=== PATIENT | female | born 1955 | race Caucasian/White ===

== ENCOUNTER 2024-04-17 01:26 | Emergency (ER) | payer OTHER ==
[2024-04-17] MEDS ORDERED: Morphine 4 MG/ML VIAL ONE (02:05)
[2024-04-17] MEDS ORDERED: Dicyclomine 20 MG/2 ML VIAL ONE (02:05)
[2024-04-17] MEDS ORDERED: Ondansetron PF 4 MG/2 ML Vial ONE (02:05)
[2024-04-17] MEDS ORDERED: Lidocaine Viscous Sol 2% 15 ml UD Cup ONE (02:06)
[2024-04-17] MEDS ORDERED: Mag-Al Plus 1200/1200/120 MG (30 mL) UDCUP ONE (02:06)
[2024-04-17] MEDS ORDERED: Sodium Chloride 0.9% 1,000 ML ONE (02:44)
[2024-04-17 02:57] LABS: ALT (SGPT) 14 U/L (8-55); AST (SGOT) 13 U/L (5-34); Albumin 4.7 g/dL (3.4-4.8); Alkaline Phosphatase 54 U/L (40-110); Anion Gap 18 mmol/L (10-20); BUN (Urea Nitrogen) 17 mg/dL (9.8-20.1); Bilirubin, Total 0.5 mg/dL (0.2-1.2); Calc. Creatinine Clearance 0 mL/min (70-130); Calcium 9.9 mg/dL (7.8-10.44); Carbon Dioxide 21 mmol/L (23-31); Chloride 106 mmol/L (98-107); Estimated GFR 41; Globulin 2.6 g/dL (2.4-3.5); Glucose 152 mg/dL (80-115); Lipase 22 U/L (8-78); Protein, Total 7.3 g/dL (5.8-8.1); Sodium 141 mmol/L (136-145)
[2024-04-17 03:09] LABS: %Eosinophils 0.4 % (0.0-10.0); %Lymphocytes 21.2 % (21.0-51.0); %Monocytes 5.5 % (0.0-10.0); %Neutrophils 71.5 % (42.0-75.0); Hematocrit 41.3 % (36.0-47.0); Hemoglobin 13.6 g/dL (12.0-16.0); Manual Diff?? NO; Mean Corpuscular HGB CONC 32.9 g/dL (32.0-36.0); Mean Corpuscular Hemoglobin 30.6 pg (27.0-31.0); Mean Platelet Volume 6.2 fL (7.4-10.4); Platelet Count 347 10x3/uL (130-400); RBC Distribution Width 11.9 % (11.5-14.5); Red Blood Cell (RBC) Count 4.44 mill/uL (4.20-5.40)
[2024-04-17 03:10] LABS: #Basophils 0.1 thou/uL (0.0-0.2); #Lymphocytes 1.7 thou/uL (1.20-3.40); #Monocytes 0.4 thou/uL (0.11-0.59); #Neutrophils 5.7 thou/uL (1.40-6.50); %Basophils 1.4 % (0.0-1.0)
[2024-04-17 04:26] LABS: Bilirubin Negative (Negative); Blood, Urine Trace (Negative); Clarity Clear (Clear); Glucose, Urine (Dipstick) Negative (Negative); Ketone, Urine Negative (Negative); Leukocyte Negative (Negative); Nitrite Negative (Negative); Protein, Urine (Dipstick) Negative (Neg-Trace); Specific Gravity, Urine 1.015 (1.005-1.030); pH, Urine 7.5 (5.0-9.0)
[2024-04-17 04:38] LABS: Amphetamine Not Detected (NotDetected); Barbiturates Screen Not Detected (NotDetected); Benzodiazepine Screen Not Detected (NotDetected); Cocaine Metabolite Screen Not Detected (NotDetected); Methadone Not Detected (NotDetected); Methamphetamine Not Detected (NotDetected); Opiate Screen Detected (NotDetected); Oxycodone Screen Not Detected (NotDetected); Phencyclidine (PCP) Not Detected (NotDetected); THC/Cannabinoid Screen Detected (NotDetected); Tricyclic Screen Not Detected (NotDetected)
[2024-04-17 04:42] LABS: CAUTI Indications for Culture Pelvic or flank pain
[2024-04-17 04:43] LABS: Urine Culture Reflex No No
[2024-04-17] MEDS ORDERED: Iopamidol 370 76% 100 ML VIAL ONE (09:41)
== END 2024-04-17 07:57 | disposition home or self-care (01) ==
LOC: MADERS 01:26
DX: R10.13 Epigastric pain (principal); R11.10 Vomiting, unspecified; F17.210 Nicotine dependence, cigarettes, uncomplicated; E78.5 Hyperlipidemia, unspecified; K21.9 Gastro-esophageal reflux disease without esophagitis; E03.9 Hypothyroidism, unspecified; Z79.899 Other long term (current) drug therapy; Z79.890 Hormone replacement therapy; Z79.82 Long term (current) use of aspirin
CPT/HCPCS: 74177; 80053; 80306; 81001; 83605; 83690; 85025; 96361; 96372; 96374; 96375; J2270; J2405; J7050; Q9967